=== PATIENT | male | born 1945 | race Caucasian/White ===

== ENCOUNTER 2018-11-05 11:45 | Day surgery (SDC) | payer OTHER ==
--- OUTSIDE RECORDS SUMMARY | 2018-11-05 11:48 | XMS REPORT ---
:1945 [facility] [address] [place] [address] Dr. Del Real [address] [place] [id number] Care Team Providers Name Role Phone Unavailable Unavailable Unavailable Problems This patient has no known problems. Allergies, Adverse Reactions, Alerts This patient has no known allergies or adverse reactions. Medications This patient has no known medications.
[2018-11-05] MEDS ORDERED: LIDOCAINE 2% MPF 5 ML VIAL ONE (13:03)
[2018-11-05] MEDS ORDERED: BUPIVACAINE 0.25% PF 10 ML VIAL ONE (13:03)
[2018-11-05] MEDS ORDERED: TETRACAINE HCL 0.5% 4ML OPTH ONE (13:03)
[2018-11-05] MEDS ORDERED: LIDOCAINE HCL/PF 3.5% OPTH GEL ONE (13:04)
[2018-11-05] MEDS ORDERED: NA CHLORIDE 0.9% 500 ML ONE (13:04)
[2018-11-05] MEDS: CYCLOPENTOLATE 1% OPTH 2 ML ONE ×3 (13:10→13:20)
[2018-11-05] MEDS: PHENYLEPHRINE 10% OPTH 5ML ONE ×3 (13:10→13:20)
[2018-11-05] MEDS ORDERED: EPINEPHRINE/PF 1 MG/ML AMP ONE (14:08)
[2018-11-05] MEDS ORDERED: BALANCED SALT IRRIG PLAIN 500 ML BTL IRR ONE (14:08)
[2018-11-05] MEDS ORDERED: BSS OPTHALMIC SOL 15 ML BOT OPTH ONE ×2 (14:09→15:26)
[2018-11-05] MEDS ORDERED: MOXIFLOXACIN HCL 10 DROPS/ML **OR USE OPTH ONE (14:09)
[2018-11-05] MEDS ORDERED: LIDOCAINE 1% MPF 2 ML AMPULE ONE (14:09)
[2018-11-05] MEDS ORDERED: TRYPAN BLUE 0.5 ML SYR OPTH ONE (14:09)
[2018-11-05] MEDS ORDERED: MIDAZOLAM HCL 2 MG/2 ML INJ ONE (14:16)
[2018-11-05] MEDS: DUOVISC 1 KIT OPTH ONE ×2 (14:34→15:03)
[2018-11-05] MEDS ORDERED: PROPOFOL 200 MG/20 ML VIAL IV ONE ×2 (14:50→15:10)
[2018-11-05] MEDS ORDERED: LIDOCAINE 1% MPF 5 ML VIAL ONE (14:50)
[2018-11-05] MEDS ORDERED: FENTANYL CITR 100 MCG/2 ML ONE (15:10)
[2018-11-05] MEDS ORDERED: ONDANSETRON 4 MG/2 ML VIAL ONE (15:20)
[2018-11-05] MEDS ORDERED: DUOVISC 1 KIT OPTH ONE (15:25)
[2018-11-05] MEDS ORDERED: NS 0.9% VIAL 10 ML ONE (15:26)
[2018-11-05] MEDS ORDERED: EPHEDRINE SULF 50 MG/ML VIAL ONE (15:26)
[2018-11-05] MEDS: NA CHLORIDE 0.9% 1,000 ML ONE ×2 (15:30→15:47)
[2018-11-05] MEDS ORDERED: [UNRECOGNIZED DRUG - OTHER] OPTH ONE (15:30)
--- NOTE | 2018-11-05 15:41 | P.BOP ---
Preoperative diagnosis: Mature cataract OS Primary procedure: Cataract extraction with IOL OS, complex with use of trypan blue Estimated blood loss: None Anesthesia: General Complications: None Implants: MA60AC +16.0 Transferred to: Recovery Room Condition: Good
--- NOTE | 2018-11-06 02:14 | OP ---
Surgeon: Jackelin Olivas MD Anesthesiologist: Tj Pfeiffer CRNA Preoperative Diagnosis: Mature cataract, left eye. Operation Performed: Phacoemulsification with intraocular lens converted to manual small incision cataract surgery, left eye, complex with use of trypan blue. Anesthesia: General anesthesia. Complications: None. Description Of The Procedure: The patient was prepped and draped in the usual sterile fashion for ophthalmic surgery. A lid speculum was placed in the left eye. There was poor red reflex and a decision was made to use trypan blue. Paracentesis sites were made superiorly and inferiorly in the limbal cornea. Preservative-free 1% lidocaine was placed in the anterior chamber. Trypan blue was placed in the anterior chamber and then balanced salt solution was used to rinse out the trypan blue from the eye. Viscoat was placed in the eye. The temporal conjunctiva was cut at the limbus with Andrew scissors. A crescent blade was used to create a tunnel incision in the temporal cornea. A keratome was used to enter the anterior chamber. Provisc was placed in the eye. During the anterior capsulotomy, the capsule began to run to the periphery and the decision was made to convert to a manual surgery. The capsulotomy was completed by starting in the opposite direction. Capsulotomy relaxing incisions were placed 90 degrees from the area that the capsule was running out. One 10- 0 nylon suture was put in the wound and the patient was put under general anesthesia. A conjunctival incision was made in the superior conjunctiva and bipolar cautery was used for hemostasis. A 10 mm scleral based wound that was self-sealing was created. The lens was removed with the lens loop and a bimanual I and A was used to remove residual cortex. Provisc was placed in the eye and a MA60AC +16.0 diopter lens was placed in the capsular bag without complications. The lens was placed in the sulcus with optic capture. Irrigation and aspiration were used to remove residual Viscoat. Miochol was placed in the eye at the end of the procedure prior to Vigamox. The paracentesis sites were hydrated with balanced salt solution. Intracameral Vigamox 0.07 cc was injected at the end of the procedure. The eye was patched with a soft cotton patch and Navarro metal shield and the patient was returned to day surgery in good condition. Comments: Akten was placed in the eye in Day Surgery and irrigated out of the eye with BSS in the OR. T Discharge Instructions: Patient is discharged to home in good condition. He is to follow up with Dr. Olivas in the morning. GAMALIEL/JOHN Voice ID: [id number] Report ID: [id number] MTDD
== END 2018-11-05 16:31 | disposition home or self-care (01) ==
LOC: OR 11:45
PROVIDERS: ATTEND Ophthalmology Retina Specialist
PROC: 08RK3JZ Replacement of Left Lens with Synthetic Substitute, Percutaneous Approach (ICD-10-PCS; principal; 2018-11-05 12:00)
DX: H25.89 Other age-related cataract (principal); E78.00 Pure hypercholesterolemia, unspecified; I10 Essential (primary) hypertension; K21.9 Gastro-esophageal reflux disease without esophagitis; Z79.82 Long term (current) use of aspirin; Z79.899 Other long term (current) drug therapy; Z95.0 Presence of cardiac pacemaker; Z87.891 Personal history of nicotine dependence
CPT/HCPCS: 66982; 36415; 84132; J2704 ×2; J0171; J2250; J3010; J2001; J7030; J2405